=== PATIENT | female | born 1990 | race Caucasian/White ===

== ENCOUNTER 2023-08-08 23:24 | Emergency (ER) | payer MEDICAID ==
[~2023-08-08] VITALS: Ht 154.9 cm; Wt 58.0 kg
[~2023-08-08 23:24] MED LIST: ATOR40TA70 PO
[2023-08-08 23:48] VITALS: BP 159/85; PULSE 77; RESP 16; O2SAT 99
[2023-08-09 07:16] LABS: BASOPHILS % 0.5 % (0.0-2.0); EOSINOPHILS % 1.2 % (0.0-5.0); HEMATOCRIT. 35.9 % (36.0-48.0); HEMOGLOBIN. 12.1 g/dL (12.0-16.0); LYMPHOCYTES % 34.5 % (20.0-50.0); MEAN CORPUSCULAR HEMOGLOBIN 29.2 pg (28.0-32.0); MEAN CORPUSCULAR HGB CONC 33.6 g/dL (31.0-37.0); MEAN PLATELET VOLUME 8.4 fl (7.4-10.4); NEUTROPHILS % 57.8 % (40.0-76.0); PLATELET 280 x1000/uL (130-400); RED BLOOD CELL COUNT 4.13 mill/uL (4.2-5.4); RED CELL DISTRIBUTION WIDTH 14.5 % (11.6-14.6); WHITE BLOOD COUNT 9.5 x1000/uL (4.5-11.0)
[2023-08-09 07:18] LABS: CHLORIDE 108 mEq/L (98-107); POTASSIUM 4.4 mEq/L (3.5-5.1); SODIUM 138 mEq/L (136-145)
[2023-08-09 07:19] LABS: CARBON DIOXIDE 25 mEq/L (21-32)
[2023-08-09 07:20] LABS: CALCIUM 8.9 mg/dL (8.7-10.4)
[2023-08-09 07:24] LABS: CREATININE 0.6 mg/dL (0.6-1.0); GLUCOSE 117 mg/dL (70-105)
[2023-08-09 07:28] LABS: UREA NITROGEN BLOOD < 5 mg/dL (9-23)
[2023-08-09 07:29] LABS: TROPONIN I HIGH SENSITIVITY < 4 ng/L (3.0-34)
== END 2023-08-09 08:26 | disposition left against medical advice (07) ==
LOC: ER 23:24
DX: R00.0 Tachycardia, unspecified (principal); R11.2 Nausea with vomiting, unspecified; F41.9 Anxiety disorder, unspecified; E11.9 Type 2 diabetes mellitus without complications; Z98.890 Other specified postprocedural states
CPT/HCPCS: 36415; 71045; 80048; 84484; 85025; 93005; 99285